=== PATIENT | male | born 1995 | race African-American/Black ===

== ENCOUNTER 2025-04-20 14:24 | Emergency (ER) | payer MEDICAID ==
[~2025-04-20] VITALS: Ht 177.8 cm; Wt 97.0 kg
[2025-04-20 14:28] VITALS: O2SAT 100
[2025-04-20 14:44] VITALS: BP 159/90; PULSE 72; RESP 16; TEMP 36.7; O2SAT 100
== END 2025-04-20 16:47 | disposition left against medical advice (07) ==
LOC: ER 14:24
DX: M54.2 Cervicalgia (principal); M54.9 Dorsalgia, unspecified; Z98.890 Other specified postprocedural states; Z53.21 Procedure and treatment not carried out due to patient leaving prior to being seen by health care provider